=== PATIENT | male | born 1950 | race Caucasian/White ===

== ENCOUNTER 2022-03-30 08:18 | Inpatient (IN) | payer MEDICARE, SELFPAY ==
[2022-03-30] VITALS (9 sets, daily range): BP systolic 141–153; BP diastolic 72–87; PULSE 55–80; RESP 14–18; TEMP 36.2–36.8; O2SAT 96–98; BMI 26.4
--- NOTE | ~2022-03-30 | XR_ITS ---
EXAMINATION: XR chest 2V DATE: 03/30/2022 09:02 INDICATION: Chest pain. TECHNIQUE: Frontal and lateral views of the chest were obtained. COMPARISON: None. FINDINGS: The chest demonstrates clear lungs without pneumonia, pleural effusion, or pneumothorax. Th e heart size is normal. IMPRESSION: 1. No acute cardiopulmonary disease. Reviewed, dictated and finalized at location A.
--- NOTE | 2022-03-30 08:24 | ECG_ITS ---
Measurements Intervals [place] Rate: 60 P: -30 CT: 165 QRS: -13 QRSD: 116 T: -18 QT: 412 QTc: 414 Interpretive Statements SINUS RHYTHM WITH OCCASIONAL SUPRAVENTRICULAR PREMATURE COMPLEXES LOW QRS VOLTAGE IN PRECORDIAL LEADS [QRS DEFLECTION < 1.0 mV IN CHEST LEADS] RIGHT BUNDLE BRANCH BLOCK [120+ ms QRS DURATION, UPRIGHT V1, 40+ ms S IN I/aVL/V4/V5/V6] NO PREVIOUS ECG AVAILABLE FOR COMPARISON Electronically Signed On 03-31-2022 13:02:13 CDT by Kasie Zafar M.D.
--- NOTE | 2022-03-30 08:47 | ED.CHESTPAIN ---
HPI - Chest Pain General Chief Complaint: Chest Pain Stated Complaint: CHEST PAIN Time Seen by Provider: 03/30/22 08:23 Source: RN notes reviewed History of Present Illness HPI narrative: Patient presents emergency room from home for chest pain. Patient states pain began approximate 505 this morning and awoke him from sleep the pain is located over the lower midsternal chest in the epigastric region and described as a tightness that goes up into his neck. States nothing makes the pain better or worse he denies any fevers or chills shortness of breath nausea vomiting or any other symptoms states he has no history of of coronary disease Related Data Home Medications Medication Instructions Recorded Confirmed amlodipine 5 mg tablet mg 03/30/22 biotin 10,000 mcg capsule mcg PO 03/30/22 bisoprolol 5 tablet 03/30/22 mg-hydrochlorothiazide 6.25 mg tablet naproxen 500 mg tablet mg 03/30/22 omeprazole 10 mg capsule,delayed mg 03/30/22 release simvastatin 20 mg tablet mg 03/30/22 Allergies Allergy/AdvReac Type Severity Reaction Status Date / Time griseofulvin [From Grisactin] Allergy Hives Verified 03/30/22 09:36 morphine Allergy Hives Verified 03/30/22 08:20 Review of Systems Review of Systems: Gen: Denies fevers or chills Eyes: Denies eye pain or visual change ENT: Denies congestion Respiratory: Denies shortness of breath or cough CV: See HPI GI: Reports epigastric abdominal pain, denies nausea, emesis or diarrhea Musculoskeletal: Denies back pain or muscle pain Neuro: Denies numbness, tingling, weakness or focal weakness Skin: Denies rash Except as documented, all other systems reviewed and negative [facility] Past Medical History Medical History (Updated 03/30/22 @ 11:05 by Elmer Campuzano DO) Hypercholesterolemia Hypertension Social History Social History (Updated 03/30/22 @ 08:53 by Elmer Campuzano DO) Smoking status: Never smoker Exam Narrative: APPEARANCE: No acute distress, nontoxic, resting in bed EYES: EOMI HEENT: Normocephalic, atraumatic, OMM RESPIRATORY: No respiratory distress Clear to auscultation bilaterally with no rhonchi wheezing or rales. CARDIOVASCULAR: Regular rate and rhythm without murmurs rubs or gallops. ABDOMINAL: Soft, nondistended tender palpation epigastric region no tenderness right upper quadrant, left upper quadrant, right lower quadrant left lower quadrant no rebound or guarding MUSCULOSKELETAl: Moves all extremities. No clubbing, cyanosis or edema. NEURO: Awake and alert. Following commands, speech normal, no focal deficits SKIN:: Warm, dry. No rashes lesions or abrasions PSYCHIATRIC: Normal affect/mood, Course Course Emergency Course: Discussed with GAY Asif for Dr. Wharton agrees with consult Disacussed with Dr Strong agrees with admission Discussed with patient and family results of workup and diagnosis. Discussed need for admission. Patient and family understand and agree to current treatment plan Vital Signs Vital signs: Vital Signs Temperature 98.3 F 03/30/22 08:25 Pulse Rate 63 03/30/22 08:25 Respiratory Rate 14 03/30/22 08:25 Blood Pressure 151/87 H 03/30/22 08:25 Pulse Oximetry 98 03/30/22 08:25 Oxygen Delivery Room Air 03/30/22 08:25 Temperature 98.3 F 03/30/22 08:25 Pulse Rate 63 03/30/22 08:25 Respiratory Rate 14 03/30/22 08:25 Blood Pressure 151/87 H 03/30/22 08:25 Pulse Oximetry 98 03/30/22 08:25 Oxygen Delivery Room Air 03/30/22 08:25 MDM - Chest Pain Lab Data Result diagrams: 03/30/22 08:52 03/30/22 08:52 Labs: Lab Results 03/30/22 03/30/22 03/30/22 Range/Units 08:52 08:52 08:52 WBC 10.3 H (4.5-10.0) K/mm3 RBC 4.88 (4.6-6.20) M/mm3 Hgb 15.5 (14.0-18.0) g/dL Hct 45.5 (42.0-52.0) % MCV 93.2 (80-100) fl MCH 31.8 (26-34) pg MCHC 34.1 (32-36) g/dl RDW 12.2 (11.5-14.5) % Plt Count 234 (150-375)
[2022-03-30 08:59] LABS: Basophils Absolute Auto 0.1 K/mm3 (0.0-0.1); Basophils Percent Auto 0.6 % (0.2-1.2); Eosinophils Absolute Auto 0.1 K/mm3 (0-0.3); Eosinophils Percent Auto 0.6 % (0-4.4); Hematocrit 45.5 % (42.0-52.0); Hemoglobin 15.5 g/dL (14.0-18.0); Immature Granulocyte Absolute 0.04 K/mm3 (0.00-0.031); Immature Granulocyte Percent A 0.4 % (0-0.5); Lymphocytes Absolute Auto 1.42 K/mm3 (0.9-3.2); Lymphocytes Percent Auto 13.8 % (18.3-44.2); Mean Corpuscular HGB Conc 34.1 g/dl (32-36); Mean Corpuscular Hemoglobin 31.8 pg (26-34); Mean Corpuscular Volume 93.2 fl (80-100); Mean Platelet Volume 9.7 fl (7.4-10.4); Monocytes Absolute Auto 0.5 K/mm3 (0.1-0.6); Monocytes Percent Auto 4.7 % (2.6-8.5); Neutrophils Absolute Auto 8.3 K/mm3 (1.3-6.7); Neutrophils Percent Auto 79.9 % (45.5-73.1); Platelet Count Result 234 k/mm3 (150-375); Red Blood Count 4.88 M/mm3 (4.6-6.20); Red Cell Distribution Width 12.2 % (11.5-14.5); White Blood Count 10.3 K/mm3 (4.5-10.0)
[2022-03-30 09:09] LABS: Alanine Aminotransferase 20 U/L (6-50); Albumin Level 4.4 g/dL (3.5-5.1); Alkaline Phosphatase 51 U/L (38-126); Anion Gap 13 mmol/L (8-16); Aspartate Amino Transferase 21 U/L (17-59); Bilirubin,Total 0.5 mg/dL (0.2-1.3); Blood Urea Nitrogen 13 mg/dL (9-20); Calcium 8.7 mg/dL (8.4-10.2); Carbon Dioxide 24 mmol/L (22-30); Chloride 102 mmol/L (98-107); Estimated CRCL calculation 85 ml/min; Estimated Glomerular Filt Rate > 60; Glucose 218 mg/dL (65-110); Lipase 63 U/L (23-300); Potassium 3.5 mmol/L (3.4-5.0); Sodium 139 mmol/L (137-145)
[2022-03-30 09:12] LABS: Prothrombin Time 12.4 Seconds (11.1-14.7)
[2022-03-30 09:13] LABS: Partial Thromboplastin Time 27.6 SECONDS (22.3-36.8)
[2022-03-30 09:20] LABS: Troponin I 0.021 ng/mL (0.000-0.034)
[2022-03-30] MEDS: ASPIRIN 81 MG CHEWABLE TABLET 324 MG PO (09:37)
--- NOTE | 2022-03-30 12:05 | PC.NURSE ---
This patient, Betito Wells, was admitted to IMU Room 209-01 at 1043. Patient/family oriented to hospital policies and general routines including ID bracelet, bed and alarms, visiting hours, pain management, procedures, bathroom and other care routines, personal items, smoking policy, room service/diet, and visiting hours. Information on how to activate the Rapid Response Team has been discussed. Patient/Family are encouraged to report perceived risks to care and to ask questions if they do not understand what they are told or what they should do.
[2022-03-30 12:13] LABS: Troponin I 0.271 ng/mL (0.000-0.034)
--- NOTE | 2022-03-30 15:30 | PM.IMHP ---
H&P: HPI History of Present Illness Date/Time: 03/30/22 13:30 Chief Complaint: Chest pain. Narrative: This is a very pleasant 71-year-old male with hypertension, hyperlipidemia, and GERD who presented to the ED via private vehicle for evaluation of chest pain. He is from [place], [place] and he and his are here visiting her grandmother. They drove to the area over a period of 2 days and arrived last evening. He had a chili dog and a beer after they got to the hotel and at about 05:00 he was wakened from sleep with discomfort in the mid chest region. Initially he thought he probably had indigestion from what he had eaten the night before though he quickly realized that his symptoms were different. He describes a pretty constant, aching discomfort in the mid chest region radiating up into the neck. After couple of hours he felt it would be best to come in for evaluation. Initial troponin level was normal at 0.020 but his 3 and 6 hour troponins have continued to increase and his most recent troponin was 4.700. The patient has been loaded with clopidogrel and he has received doses of aspirin, metoprolol, losartan, and atorvastatin. Plans are for coronary angiogram tomorrow per Dr. Wharton. The patient has no known history of coronary artery disease. He had a cardiac catheterization done about 20 years ago which showed perhaps a very small area of blockage but nothing significant and he was started on atorvastatin. He has not had any episodes of chest pain prior to today. He denies associated nausea, vomiting, sweats, and shortness of breath Review of Systems Review of Systems: Twelve systems were reviewed. No recent cold or flu symptoms. No syncope or near syncope. No lower extremity edema. He has not had exertional chest pain. He denies associated shortness of breath, nausea, vomiting, and sweats. No history of venous thromboembolism. Except as documented, all other systems were reviewed and are negative. [facility] Past Medical History Medical History (Updated 03/30/22 @ 13:28 by Moira Madsen PA-C) Arthritis Gastroesophageal reflux disease Hyperlipidemia Hypertension Surgical History Surgical History (Updated 03/30/22 @ 21:42 by Moira Madsen PA-C) History of cardiac catheterization History of left knee surgery History of tonsillectomy Family History Family History Sibling A-fib Breast cancer Father Diabetes mellitus Coronary artery disease involving coronary bypass graft Mother TIA (transient ischemic attack) Cerebrovascular accident Social History Social History (Updated 03/30/22 @ 21:43 by Moira Madsen PA-C) Social History: Surrogate medical decision maker: Abner Wells, spouse. Code status: Full code. Smoking status: Former smoker Tobacco type: cigarettes Alcohol intake: current Drinks per week: 1 Substance use: never Additional living arrangements comments: The patient lives with his in [place], [place]. 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 Spiritual care concerns: No Meds Home Medications and Allergies Home Medications Medication Instructions Recorded Confirmed Type Claritin 1 tablet PO QPM 03/30/22 03/30/22 History Daily Multivitamin 1 cap PO DAILY 03/30/22 03/30/22 History amlodipine 5 mg tablet 5 mg PO DAILY 03/30/22 03/30/22 History biotin 10,000 mcg capsule 10,000 mcg PO DAILY 03/30/22 03/30/22 History bisoprolol 5 5 - 6.25 tablet PO BID 03/30/22 03/30/22 History mg-hydrochlorothiazide 6.25 mg tablet naproxen 500 mg tablet 500 mg PO DAILY PRN Pain 03/30/22 03/30/22 History omeprazole 10 mg capsule,delayed 20 mg PO QPM 03/30/22 03/30/22 History release simvastatin 20 mg tablet 20 mg PO DAILY 03/30/22 03/30/22 History vitamin E 400 unit tablet 400 unit PO DAILY 03/30/22 03/30/22 History Allergies Allergy/AdvReac Type Severity Reaction Status Da
--- NOTE | 2022-03-30 15:49 | PM.CNCAR ---
Assessment and Plan Assessment and plan (1) Non-ST elevation myocardial infarction (NSTEMI): Code(s): I21.4 - Non-ST elevation (NSTEMI) myocardial infarction Status: Acute Plan This is a 71-year-old man with hypertension and dyslipidemia who enters the hospital with an episode of chest pain this morning obvious evidence of non ST elevation TN with signet significant troponin rise. I will order aspirin, load him with clopidogrel and, beta-adriane, statin and ARB. Will arrange for coronary angiography for tomorrow morning. We will give him 1 dose of Lovenox this evening Alberto Wharton MD [facility] History of Present Illness History of Present Illness Consult date/time: 03/30/22 15:49 Consult reason: chest pain Reason For Visit: Chest Pain Narrative: This is a 71-year-old man who came to our hospital this morning because of chest pain. He is visiting this area from [place] to see his elderly [id number] and began to experience chest discomfort this morning and went to an urgent care center who sent him immediately to this hospital's emergency room for evaluation and management. After being seen in the emergency department he has been admitted to IMU. He has the diagnosis of non ST segment elevation TN. He says he has no prior history of coronary artery disease but he has had esophageal reflux for many years. He says that his physicians in [place] on a number of occasions have been concerned about heart disease and in fact quite a few years ago put appear a coronary angiogram and with favorable findings. He states that he is not experiencing any trouble exerting himself in the way of shortness of breath or chest pain the symptoms today however were similar to his previous reflux symptoms in terms of central burning chest discomfort but they persisted longer and were a bit more severe. There was no associated shortness of breath or or diaphoresis. His troponin levels on arrival were normal but have risen up to over 4. He is comfortable at this time. He has been treated with aspirin but nothing else for this acute coronary event. Review of Systems Constitutional: Constitutional: Reports no additional constitutional complaints Eyes: Eyes: Reports no additional eye complaints ENT: Reports system reviewed and no additional complaints, except as documented Cardiovascular: Cardiovascular: Reports as per HPI and Reports chest pain Respiratory: Respiratory: Reports no additional respiratory complaints Gastrointestinal: Gastrointestinal: Reports as per HPI and Reports heartburn Musculoskeletal: Musculoskeletal: Reports no additional musculoskeletal complaints Neurologic: Reports system reviewed and no additional complaints, except as documented Endocrine: Endocrine: Reports no additional endocrine complaints Hematologic/Lymphatic: Hematologic/Lymphatic: Reports no additional hematologic/lymphatic complaints Allergic/Immunologic: Allergic/Immunologic: Reports no additional allergic/immunologic complaints [facility] Past Medical History Medical History (Updated 03/30/22 @ 13:28 by Moira Madsen PA-C) Arthritis Gastroesophageal reflux disease Hyperlipidemia Hypertension Family History Family History (Updated 03/30/22 @ 11:37 by Dafne Dodge RN) Sibling A-fib Breast cancer Father Diabetes mellitus Coronary artery disease involving coronary bypass graft Mother TIA (transient ischemic attack) Cerebrovascular accident Social History Social History (Updated 03/30/22 @ 13:27 by Moira Madsen PA-C) Social History: Surrogate medical decision maker: Code status: Full code. Smoking status: Former smoker Tobacco type: cigarettes Alcohol intake: current Drinks per week: 1 Substance use: never Spiritual care concerns: No Meds Home Medications and Allergies Home Medications Medication Instructions Recorded Confirmed Type Claritin 1 tablet PO QPM 03/30/22 03/30/22
[2022-03-30] MEDS: LOSARTAN POTASSIUM 25 MG TABLET PO (18:11)
[2022-03-30] MEDS: ATORVASTATIN 40 MG TABLET 80 MG PO (18:11)
[2022-03-30] MEDS: CLOPIDOGREL BISULFATE 300 MG TABLET 600 MG PO (18:11)
[2022-03-30] MEDS: METOPROLOL SUCCINATE EXT REL 50 MG TABCR PO (18:11)
[2022-03-30] MEDS: ENOXAPARIN 80 MG/0.8 ML SYRINGE SUB-Q (18:12)
[2022-03-30] MEDS: PANTOPRAZOLE 40 MG TABLET PO (22:27)
[2022-03-31] VITALS (28 sets, daily range): BP systolic 113–146; BP diastolic 55–78; PULSE 50–69; RESP 8–18; TEMP 36.3–36.6; O2SAT 92–98
--- NOTE | 2022-03-31 | ECHO_ITS ---
Patient Info Name: Betito Wells Age: 71 years : 1950 Gender: Male Ht: 70 in Wt: 174 lbs BSA: 1.98 m2 HR: 60 bpm BP: 122 / 66 mmHg Heart Rhythm: Sinus Rhythm Technical Quality: Fair Exam Date: 03/31/2022 1:45 PM Exam Location: [facility] Patient Status: Inpatient Admit Date: 03/31/2022 Staff Ordering Physician: Harrison Callahan MD (dasia/bora) Machine Worker: Donna Wells RDCS Attending Provider: Aleksandr Lantigua MD Referring Physician: London FARLEY; Exam Type: CA echo doppler color flow Study Info Indications - NSTEMI Complete two-dimensional, color flow and Doppler transthoracic echocardiogram is performed with contrast to opacify the left ventricle and to improve the deliniation of the left ventricle endocardial borders. Contrast/Agitated Saline Contrast/Ag. Saline: Definity Amount: 3.00 ml Administered By: Donna Wells RDCS Existing IV Access: Yes IV Access Condition: patent with no signs of infiltration Summary 1. Left ventricular systolic function is normal, estimated at >70%. 2. Right ventricular systolic function is normal. 3. No significant valvular disease. Left Ventricle Left ventricular chamber dimension is normal. Left ventricular systolic function is normal, estimated at >70%. There is no increased left ventricular wall thickness. The left ventricular diastolic function is normal. Right Ventricle Right ventricular chamber dimension is normal. Right ventricular systolic function is normal. Left Atria Left atrial chamber dimension is normal. Right Atria Right atrial chamber dimension is normal. Aortic Valve The aortic valve is not well visualized. There is no aortic valve sclerosis. There is no aortic valve stenosis. There is no aortic valve regurgitation. There is mild aortic valve calcification. Pulmonic Valve The pulmonic valve is not well visualized. Mitral Valve The mitral valve has normal leaflets. There is no mitral valve stenosis. There is no mitral valve regurgitation. Tricuspid Valve The tricuspid valve leaflets are not well visualized. There is trace tricuspid valve regurgitation. Pericardium/Pleural There is no pericardial effusion. Inferior Vena Cava Normal inferior vena cava with <50% collapse upon inspiration. Aorta The aortic root size at the sinus of Valsalva is normal. Left Ventricular Outflow Tract Name Value Normal LVOT 2D LVOT Diameter 2.0 cm LVOT Doppler LVOT Peak Gradient 3 mmHg LVOT Mean Gradient 1 mmHg LVOT VTI 21 cm LVOT VTI/AV VTI Ratio 0.4 LVOT Stroke Volume 64 ml LVOT CO 3.5 l/min LVOT CI 1.8 l/min/m2 Pulmonic Valve Name Value Normal
--- NOTE | 2022-03-31 03:45 | PC.NURSE ---
Spoke with Dr. Church regarding current 4/10 chest pain. Patient describes it as a chest discomfort/ache at a 4/10 pain. Give 0.4mg SL Nitro. If patient still has discomfort, may do nitro transdermal. Give patient 4L NC supplemental oxygen.
[2022-03-31] MEDS: NITROGLYCERIN SL 0.4 MG TABLET SUBLINGUAL (03:57)
--- NOTE | 2022-03-31 04:06 | PC.NURSE ---
Chest pain down to 2/10, start Nitropaste [address] Church.
[2022-03-31] MEDS: NITROGLYCERIN OINTMENT 1 INCH DOSE TRANSDERM (04:10)
[2022-03-31 04:59] LABS: Basophils Absolute Auto 0.1 K/mm3 (0.0-0.1); Basophils Percent Auto 0.8 % (0.2-1.2); Eosinophils Absolute Auto 0.2 K/mm3 (0-0.3); Eosinophils Percent Auto 2.3 % (0-4.4); Hematocrit 42.6 % (42.0-52.0); Hemoglobin 14.2 g/dL (14.0-18.0); Immature Granulocyte Absolute 0.02 K/mm3 (0.00-0.031); Immature Granulocyte Percent A 0.2 % (0-0.5); Lymphocytes Absolute Auto 2.35 K/mm3 (0.9-3.2); Lymphocytes Percent Auto 28.1 % (18.3-44.2); Mean Corpuscular HGB Conc 33.3 g/dl (32-36); Mean Corpuscular Hemoglobin 31.3 pg (26-34); Mean Platelet Volume 9.8 fl (7.4-10.4); Monocytes Absolute Auto 0.8 K/mm3 (0.1-0.6); Neutrophils Percent Auto 59.6 % (45.5-73.1); Platelet Count Result 245 k/mm3 (150-375); Red Blood Count 4.53 M/mm3 (4.6-6.20); Red Cell Distribution Width 12.4 % (11.5-14.5); White Blood Count 8.4 K/mm3 (4.5-10.0)
[2022-03-31 05:23] LABS: Alanine Aminotransferase 20 U/L (6-50); Albumin Level 3.9 g/dL (3.5-5.1); Alkaline Phosphatase 42 U/L (38-126); Anion Gap 12 mmol/L (8-16); Aspartate Amino Transferase 59 U/L (17-59); Bilirubin,Total 0.5 mg/dL (0.2-1.3); Blood Urea Nitrogen 12 mg/dL (9-20); Calcium 8.2 mg/dL (8.4-10.2); Carbon Dioxide 27 mmol/L (22-30); Chloride 103 mmol/L (98-107); Estimated CRCL calculation 85 ml/min; Estimated Glomerular Filt Rate > 60; Glucose 130 mg/dL (65-110); Potassium 3.5 mmol/L (3.4-5.0); Sodium 142 mmol/L (137-145)
[2022-03-31] MEDS: METOPROLOL SUCCINATE EXT REL 50 MG TABCR PO (08:35)
[2022-03-31] MEDS: ATORVASTATIN 40 MG TABLET 80 MG PO (08:35)
[2022-03-31] MEDS: LOSARTAN POTASSIUM 25 MG TABLET PO (08:35)
[2022-03-31 08:47] LABS: Glucose Point of Care 129 mg/dl (65-105)
--- NOTE | 2022-03-31 10:33 | SUR.PREOP ---
patient transferred from [facility] to [facility] room 7 on monitor in preparation for cardiac cath.
--- NOTE | 2022-03-31 11:16 | PM.PNCARD ---
Progress Note: A&P Assessment and Plan (1) Non-ST elevation myocardial infarction (NSTEMI): Code(s): I21.4 - Non-ST elevation (NSTEMI) myocardial infarction Status: Acute (2) Gastroesophageal reflux disease: Code(s): K21.9 - Gastro-esophageal reflux disease without esophagitis Status: Acute (3) Hyperlipidemia: Code(s): E78.5 - Hyperlipidemia, unspecified Status: Acute (4) Chest pain: Code(s): R07.9 - Chest pain, unspecified Status: Acute (5) Hypertension: Code(s): I10 - Essential (primary) hypertension Status: Acute Plan Cardiac cath today. Further recommendations pending results of cath. Subjective Date/time seen: 03/31/22 11:16 Interval history: Planned for cardiac cath today. Review of Systems Review of Systems: All systems reviewed & are unremarkable except as noted in HPI and below (subjective) Exam Const: General: comfortable and no acute distress Neck: Neck: no JVD Resp: Effort & Inspection: normal respiratory effort Auscultation: clear to auscultation bilaterally Cardio: Rate: regular rate Rhythm: regular rhythm Heart sounds: no murmurs GI: GI Palp: Yes Soft to palpation and No Tenderness to palpation present (GI) Skin: General skin exam: normal color Neuro: Speech: normal speech Extrem: General: no edema Psych: Mental Status: mental status grossly normal Objective Data Vital Signs Vital Signs: Vital Signs - 24 hr 03/30/22 12:00 03/30/22 16:00 03/30/22 18:11 Temperature 36.2 C L 36.7 C Pulse Rate 58 L 61 70 Respiratory Rate 18 18 Blood Pressure 148/73 H 149/72 H Pulse Oximetry 96 97 Oxygen Delivery 03/30/22 12:00 03/30/22 14:00 03/30/22 16:00 Temperature Pulse Rate 56 L 55 L 63 Respiratory Rate Blood Pressure Pulse Oximetry Oxygen Delivery 03/30/22 18:00 03/30/22 16:00 03/30/22 20:00 Temperature Pulse Rate 62 71 Respiratory Rate 17 Blood Pressure Pulse Oximetry Oxygen Delivery Room Air Room Air 03/30/22 20:00 03/30/22 20:00 03/30/22 22:00 Temperature 36.7 C Pulse Rate 80 77 71 Respiratory Rate 18 Blood Pressure 141/74 H Pulse Oximetry 97 Oxygen Delivery 03/31/22 00:00 03/31/22 00:00 03/31/22 00:00 Temperature 36.4 C Pulse Rate 62 64 60 Respiratory Rate 16 Blood Pressure 133/70 Pulse Oximetry 97 Oxygen Delivery Room Air 03/31/22 02:00 03/31/22 03:04 03/31/22 04:00 Temperature 36.6 C Pulse Rate 62 62 58 L Respiratory Rate 16 Blood Pressure 146/71 H Pulse Oximetry 98 Oxygen Delivery Room Air 03/31/22 04:00 03/31/22 06:00 03/31/22 07:50 Temperature 36.3 C L Pulse Rate 65 61 60 Respiratory Rate 12 Blood Pressure 122/66 Pulse Oximetry 98 Oxygen Delivery 03/31/22 08:00 03/31/22 08:00 03/31/22 10:00 Temperature Pulse Rate 63 60 Respiratory Rate Blood Pressure Pulse Oximetry Oxygen Delivery Room Air Intake/Output Intake/Output: Intake & Output 03/28/22 03/29/22 03/30/22 03/31/22 23:59 23:59 23:59 23:59 Intake Total 840 Output Total 400 Balance 840 -400 Meds/Results Medications: Active Medications Generic Name Dose Route Start Last Admin Trade Name Freq PRN Reason Stop Dose Admin Acetaminophen 650 mg 03/31/22 04:11 Acetaminophen 325 Mg Tablet PO Q4H PRN Headache Aspirin 81 mg 03/31/22 09:00 Aspirin 81 Mg [facility] Atorvastatin Calcium 80 mg 03/30/22 15:50 03/31/22 08:35 Atorvastatin 40 Mg Tablet PO 80 mg DAILY [facility] Administration Clopidogrel Bisulfate 75 mg 03/31/22 09:00 Clopidogrel Bisulfate 75 Mg Tablet [facility] Losartan Potassium 25 mg 03/30/22 15:50 03/31/22 08:35 Losartan Potassium 25 Mg Tablet PO 25 mg DAILY [facility] Administration Metoprolol Succinate 50 mg 03/30/22 15:50 03/31/22 08:35 Metoprolol Succinate Ext Rel 50 Mg Tabcr PO 50 mg QA
--- NOTE | 2022-03-31 11:18 | WPDMODSED ---
Moderate Sedation Note-Pt Data Patient Data Diagnosis: NSTEMI Present Complaint: Chest pain Procedure to be performed/Plan: Cardiac Cath Allergies Allergy/AdvReac Type Severity Reaction Status Date / Time griseofulvin [From Grisactin] Allergy Hives Verified 03/30/22 09:36 morphine Allergy Hives Verified 03/30/22 08:20 Home Medications Medication Instructions Recorded Confirmed Type Claritin 1 tablet PO QPM 03/30/22 03/30/22 History Daily Multivitamin 1 cap PO DAILY 03/30/22 03/30/22 History amlodipine 5 mg tablet 5 mg PO DAILY 03/30/22 03/30/22 History biotin 10,000 mcg capsule 10,000 mcg PO DAILY 03/30/22 03/30/22 History bisoprolol 5 5 - 6.25 tablet PO BID 03/30/22 03/30/22 History mg-hydrochlorothiazide 6.25 mg tablet naproxen 500 mg tablet 500 mg PO DAILY PRN Pain 03/30/22 03/30/22 History omeprazole 10 mg capsule,delayed 20 mg PO QPM 03/30/22 03/30/22 History release simvastatin 20 mg tablet 20 mg PO DAILY 03/30/22 03/30/22 History vitamin E 400 unit tablet 400 unit PO DAILY 03/30/22 03/30/22 History Current Medications: Active Medications Acetaminophen (Acetaminophen 325 Mg Tablet) 650 mg PO Q4H PRN PRN Reason: Headache Aspirin (Aspirin 81 Mg Enteric Tablet) 81 mg PO QAM [facility] Atorvastatin Calcium (Atorvastatin 40 Mg Tablet) 80 mg PO DAILY [facility] Last Admin: 03/31/22 08:35 Dose: 80 mg Clopidogrel Bisulfate (Clopidogrel Bisulfate 75 Mg Tablet) 75 mg PO QAM [facility] Losartan Potassium (Losartan Potassium 25 Mg Tablet) 25 mg PO DAILY [facility] Last Admin: 03/31/22 08:35 Dose: 25 mg Metoprolol Succinate (Metoprolol Succinate Ext Rel 50 Mg Tabcr) 50 mg PO QAM [facility] Last Admin: 03/31/22 08:35 Dose: 50 mg Nitroglycerin (Nitroglycerin Sl 0.4 Mg Tablet) 0.4 mg SUBLINGUAL Q5MIN PRN PRN Reason: Chest Pain Last Admin: 03/31/22 03:57 Dose: 0.4 mg Pantoprazole Sodium (Pantoprazole 40 Mg Tablet) 40 mg PO QPM [facility] Last Admin: 03/30/22 22:27 Dose: 40 mg Perflutren Lipid Microsphere (Perflutren Lipid Microspheres 1.5 Ml Vial Diluted To 10 Ml Total Volume) 0 ml IV PUSH ONCE PRN; Protocol PRN Reason: adequate visualization Stop: 04/02/22 11:17 Sedation/Anesthesia: No previous sedation/anesthesia problems (including family history). [facility] Past Medical History Medical History Arthritis Gastroesophageal reflux disease Hyperlipidemia Hypertension Surgical History Surgical History History of cardiac catheterization History of left knee surgery History of tonsillectomy Family History Family History Sibling A-fib Breast cancer Father Diabetes mellitus Coronary artery disease involving coronary bypass graft Mother TIA (transient ischemic attack) Cerebrovascular accident Social History Social History Social History: Surrogate medical decision maker: Abner Wells, spouse. Code status: Full code. Smoking status: Former smoker Tobacco type: cigarettes Alcohol intake: current Drinks per week: 1 Substance use: never Additional living arrangements comments: The patient lives with his in [place], [place]. 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 Spiritual care concerns: No Mod Sed Physical Exam Physical Exam Pre Procedural Exam: Normal: Appearance, Lungs, Heart Rate, Heart Rhythm, Neuro Exam, Abdomen, Extremities and Skin Hours since solid foods: 10 Hours since liquid intake: 10 Mallampati Classification: class III Internal Medicine - PN: Obj Da Vital Signs Vital Signs: Vital Signs - 24 hr 03/30/22 12:00 03/30/22 16:00 03/30/22 18:11 Temperature 36.2 C L 36.7 C Pulse Rate 58 L 61 70 Respiratory Rate 18 18 Blood Pressure 148/73 H 149/72 H Pulse Oximetry 96 97 Oxygen Delivery 03/30/22 12:00 03/30/22
--- NOTE | 2022-03-31 12:42 | WPDCARDPROC ---
Cardiac Cath Procedure Note Date of procedure:: 03/31/22 Performing physician:: CATHETERIZATION LABORATORY REPORT Procedure Date: 03/31/2022 Dynamotor Repairer: Harrison Callahan M.D., [facility]? Referring Physician: Dr. Wharton Anesthesia: Versed and Fentanyl were ordered and given in my presence at 11:24, procedure ended at 12:34. Supervision of nurse monitored moderate sedation with Versed and Fentanyl was provided for 70 minutes. Total of Versed 4mg, Fentanyl 100mcg, and Dilaudid 0.5mg were administered by the laborer golf course RN. Pre-op Diagnosis: NSTEMI / ACS Post-op Diagnosis: Significant Diagonal-1 stenosis s/p successful PCI with MARJORIE x 1 Non-obstructive coronary artery disease of the LAD, LCX/OM, and RCA Procedure(s): 1. Moderate sedation 2. Ultrasound-guided access of the right radial artery 3. Coronary angiography 4. PCI of the Diagonal-1 with MARJORIE x 1 Access Site: Right radial artery Brief History and Clinical Indications: Patient is a 71-year-old male with a history of hypertension and hyperlipidemia who presented with chest pain, found to have an NSTEMI. Patient referred for cardiac cath for NSTEMI. All risks, benefits and alternatives to left heart catheterization with or without percutaneous coronary intervention was discussed at length with the patient. Risk of complications including but not limited to bleeding, infection, arrhythmia, stroke, worsening kidney function, blood loss, groin hematoma, limb loss, emergency coronary artery bypass grafting, and even were discussed with the patient and all questions were answered. The patient understood and wished to proceed. Time out called, patient name, date of , medical record number, allergies, procedure performed, identify Dynamotor Repairer, patient and staff member concurred with accurate data, procedure carried on. Findings: LEFT HEART CATHETERIZATION FINDINGS: 1. Left main: The left main coronary artery is widely patent without any significant obstructive disease. The left main is short. 2. Left anterior descending: The LAD has mild diffuse disease without any significant obstructive angiographic disease. The first diagonal branch has proximal mild diffuse disease. The mid portion of the Diagonal-1 vessel has a focal 80-90% stenosis. 3. Left circumflex: The left circumflex artery and the main marginal branches have mild diffuse disease without any significant obstructive angiographic disease. 4. Right coronary artery: The RCA has mild diffuse disease without any significant obstructive angiographic disease. The RCA is the dominant vessel. Description of Procedure: Informed consent signed and placed in the chart. Patient transferred to laborer golf course room. Prepped and draped in usual sterile fashion. 2% lidocaine injected subcutaneously in right wrist area. 22-gauge venipuncture catheter used to access the right radial artery with the Seldinger technique. 6-FR slender sheath placed in right radial artery. Nitroglycerine and Cardene was given intraarterial through the sheath. Versacore wire advanced under fluoroscopy 5F Tig 4 diagnostic catheter engaged Left Main Coronary Artery. 5F Tig 4 diagnostic catheter engaged Right Coronary Artery Multiple orthogonal angiogram obtained and reviewed Heparin was used for anticoagulation (ACT maintained above 250) Patient loaded with heparin at 70 units/kg. 6F JL4 guide catheter was used to intubate the LM. 0.014 [place] coronary wire was passed in to the distal Diagonal vessel. The lesion was pre-dilated with a 2.5mm x 20mm balloon inflated to high SANDY A 3.0mm x 22mm Orsiro MARJORIE was successfully deployed into Diagonal (inflated to 12ATM). Intracoronary NTG was administered Post-stent deployment, it appeared that there was a lesion proximal to the stent. This improved with IC NTG. As the stent may have been slightly oversized, this likely gave the appearance of proximal disease. To avoid stenting into the ostium / bifurcation of the
[2022-03-31 12:48] LABS: Activated Clotting Time 184 SEC (74-137)
[2022-03-31 12:48] LABS: Activated Clotting Time 324 SEC (74-137)
--- NOTE | 2022-03-31 13:08 | SUR.PHASEII ---
patient in recovery room [id number] with family at bedside. education given on right wrist restrictions/arm band and armboard. call light with in reach
[2022-03-31] MEDS: PERFLUTREN LIPID MICROSPHERES 1.5 ML VIAL DILUTED TO 10 ML TOTAL VOLUME IV PUSH (14:00)
--- NOTE | 2022-03-31 14:12 | ECG_ITS ---
Measurements Intervals Sharon Rate: 54 P: 5 CA: 190 QRS: 3 QRSD: 116 T: 36 QT: 418 QTc: 397 Interpretive Statements SINUS BRADYCARDIA LOW QRS VOLTAGE IN PRECORDIAL LEADS [QRS DEFLECTION < 1.0 mV IN CHEST LEADS] RIGHT BUNDLE BRANCH BLOCK [120+ ms QRS DURATION, UPRIGHT V1, 40+ ms S IN I/aVL/V4/V5/V6] COMPARED TO ECG 03/30/2022 08:28:04 SINUS BRADYCARDIA NOW PRESENT Electronically Signed On 04-01-2022 14:36:08 CDT by Harrison Callahan M.D.
[2022-03-31] MEDS: SODIUM CHLORIDE 0.9% IV 1,000 ML 125 ML IV CONT (15:00)
--- NOTE | 2022-03-31 15:12 | PM.IMPN ---
Progress Note: A&P Assessment and Plan (1) Non-ST elevation myocardial infarction (NSTEMI): Code(s): I21.4 - Non-ST elevation (NSTEMI) myocardial infarction Status: Acute (2) Hypertension: Code(s): I10 - Essential (primary) hypertension Status: Acute (3) Hyperlipidemia: Code(s): E78.5 - Hyperlipidemia, unspecified Status: Acute (4) Gastroesophageal reflux disease: Code(s): K21.9 - Gastro-esophageal reflux disease without esophagitis Status: Acute Plan # non ST-elevation [place]: On aspirin and Plavix. Underwent cardiac catheterization 03/31/2022: Significant Diagonal-1 stenosis s/p successful PCI with MARJORIE x 1 Non-obstructive coronary artery disease of the LAD, LCX/OM, and RCA DA PT for 1 year followed by a ASA indefinitely TTE planned high-dose statin # hypertension #Hyperlipidemia # DVT prophylaxis received Lovenox # disposition: Patient Is from [facility]. Follow-up with cardiology upon discharge Subjective Date/time seen: 03/31/22 15:12 Interval history: seen earlier today. Had an episode of chest pain last night resolved with nitro. His going for a heart catheterization today. Discussed with tiger machine operator Review of Systems Review of Systems: All systems reviewed & are unremarkable except as noted in HPI and below Exam Narrative: General: Well-developed male sitting up in bed no distress. HEENT: Wearing glasses. PERRL, EOMI. Sclera anicteric. Oral mucosa moist. Oropharynx clear. Neck: Supple. No JVD or carotid bruits. Respiratory: Lungs are clear to auscultation bilaterally. Cardiovascular: Regular rate and rhythm with S1-S2. Gastrointestinal: Abdomen is soft, nontender, and nondistended with positive bowel sounds. Skin: Warm and dry. No rash or lesions on limited exam. Extremities: No cyanosis, clubbing, or edema. Radial and pedal pulses intact. Neurological: Alert. Cranial nerves 2-12 are grossly intact. No gross focal deficits to casual conversation. Psychiatric: Pleasant and cooperative with normal mood and affect. Judgment and insight intact. Objective Data Vital Signs Vital Signs: Vital Signs - 24 hr 03/30/22 16:00 03/30/22 18:11 03/30/22 16:00 Temperature 98.1 F Pulse Rate 61 70 63 Respiratory Rate 18 Blood Pressure 149/72 H Pulse Oximetry 97 Oxygen Delivery 03/30/22 18:00 03/30/22 16:00 03/30/22 20:00 Temperature Pulse Rate 62 71 Respiratory Rate 17 Blood Pressure Pulse Oximetry Oxygen Delivery Room Air Room Air 03/30/22 20:00 03/30/22 20:00 03/30/22 22:00 Temperature 98.1 F Pulse Rate 80 77 71 Respiratory Rate 18 Blood Pressure 141/74 H Pulse Oximetry 97 Oxygen Delivery 03/31/22 00:00 03/31/22 00:00 03/31/22 00:00 Temperature 97.6 F Pulse Rate 62 64 60 Respiratory Rate 16 Blood Pressure 133/70 Pulse Oximetry 97 Oxygen Delivery Room Air 03/31/22 02:00 03/31/22 03:04 03/31/22 04:00 Temperature 97.9 F Pulse Rate 62 62 58 L Respiratory Rate 16 Blood Pressure 146/71 H Pulse Oximetry 98 Oxygen Delivery Room Air 03/31/22 04:00 03/31/22 06:00 03/31/22 07:50 Temperature 97.4 F L Pulse Rate 65 61 60 Respiratory Rate 12 Blood Pressure 122/66 Pulse Oximetry 98 Oxygen Delivery 03/31/22 08:00 03/31/22 08:00 03/31/22 10:00 Temperature Pulse Rate 63 60 Respiratory Rate Blood Pressure Pulse Oximetry Oxygen Delivery Room Air 03/31/22 13:04 03/31/22 13:00 03/31/22 13:15 Temperature Pulse Rate 57 L 54 L 51 L Respiratory Rate 16 16 8 L Blood Pressure 141/69 H 129/67 136/65 Pulse Oximetry 93 93 94 Oxygen Delivery Room Air Room Air Room Air 03/31/22 14:00 03/31/22 13:30 03/31/22 13:45 Temperature Pulse Rate 55 L 55 L 50 L Respiratory Rate 15 10 L 12 Blood Pressure 135/69 127/71 130/65 Pulse Oximetry 92 94 94 Oxygen Delivery Room Air Room Air Room Air 03/31/22 14:15 03/31/22 14:32 10
[2022-03-31] MEDS: PANTOPRAZOLE 40 MG TABLET PO (16:10)
[2022-04-01] VITALS (8 sets, daily range): BP systolic 128–131; BP diastolic 62–68; PULSE 54–71; RESP 16–18; TEMP 36.1–36.6; O2SAT 95–97
[2022-04-01 04:46] LABS: Basophils Absolute Auto 0.1 K/mm3 (0.0-0.1); Basophils Percent Auto 0.7 % (0.2-1.2); Eosinophils Absolute Auto 0.3 K/mm3 (0-0.3); Eosinophils Percent Auto 2.8 % (0-4.4); Hematocrit 39.2 % (42.0-52.0); Hemoglobin 13.4 g/dL (14.0-18.0); Immature Granulocyte Absolute 0.02 K/mm3 (0.00-0.031); Immature Granulocyte Percent A 0.2 % (0-0.5); Lymphocytes Absolute Auto 2.62 K/mm3 (0.9-3.2); Mean Corpuscular HGB Conc 34.2 g/dl (32-36); Mean Corpuscular Hemoglobin 31.3 pg (26-34); Mean Corpuscular Volume 91.6 fl (80-100); Mean Platelet Volume 9.6 fl (7.4-10.4); Monocytes Absolute Auto 0.7 K/mm3 (0.1-0.6); Monocytes Percent Auto 7.9 % (2.6-8.5); Neutrophils Absolute Auto 5.4 K/mm3 (1.3-6.7); Neutrophils Percent Auto 59.4 % (45.5-73.1); Platelet Count Result 214 k/mm3 (150-375); Red Blood Count 4.28 M/mm3 (4.6-6.20); Red Cell Distribution Width 12.4 % (11.5-14.5)
[2022-04-01 04:54] LABS: Alanine Aminotransferase 17 U/L (6-50); Albumin Level 3.6 g/dL (3.5-5.1); Alkaline Phosphatase 40 U/L (38-126); Anion Gap 9 mmol/L (8-16); Aspartate Amino Transferase 37 U/L (17-59); Bilirubin,Total 0.5 mg/dL (0.2-1.3); Blood Urea Nitrogen 8 mg/dL (9-20); Calcium 7.9 mg/dL (8.4-10.2); Carbon Dioxide 27 mmol/L (22-30); Chloride 104 mmol/L (98-107); Estimated CRCL calculation 98 ml/min; Estimated Glomerular Filt Rate > 60; Glucose 107 mg/dL (65-110); Magnesium 2.2 mg/dL (1.6-2.3); Potassium 3.7 mmol/L (3.4-5.0); Sodium 140 mmol/L (137-145)
--- NOTE | 2022-04-01 08:31 | PM.IMPN ---
Progress Note: A&P Assessment and Plan (1) Non-ST elevation myocardial infarction (NSTEMI): Code(s): I21.4 - Non-ST elevation (NSTEMI) myocardial infarction Status: Acute Assessment and Plan: Appreciate cardiology consultation, continue aspirin and Plavix for 1 year, then aspirin monotherapy, continue high-intensity statin Status post heart catheterization March 31 with PCI of a MARJORIE x1 (2) Gastroesophageal reflux disease: Code(s): K21.9 - Gastro-esophageal reflux disease without esophagitis Status: Acute Assessment and Plan: Continue PPI (3) Hyperlipidemia: Code(s): E78.5 - Hyperlipidemia, unspecified Status: Acute Assessment and Plan: Continue Lipitor (4) Hypertension: Code(s): I10 - Essential (primary) hypertension Status: Acute Assessment and Plan: Controlled on losartan, metoprolol Plan DVT prophylaxis with Lovenox GI prophylaxis with PPI Code status full code Subjective Date/time seen: 04/01/22 08:31 Interval history: No overnight events noted. No chest pain or shortness of breath. No nausea, vomiting or diarrhea. No fevers or chills. Review of Systems Review of Systems: 12 point review of systems was assessed and was negative except as noted in the HPI Exam Narrative: General: No acute distress, alert and oriented per baseline HEENT: Atraumatic, normocephalic, mucous membranes moist CV: Regular rate and rhythm, S1, S2 Lungs: Clear to auscultation bilaterally, no rales or crackles noted, no wheezes, good air entry Abdomen: Soft, nontender, nondistended Extremities: Normal to inspection Skin: No rashes noted, no lesions or wounds seen Psych: Euthymic, normal affect Objective Data Vital Signs Vital Signs: Vital Signs - 24 hr 03/31/22 10:00 03/31/22 13:04 03/31/22 13:00 Temperature Pulse Rate 60 57 L 54 L Respiratory Rate 16 16 Blood Pressure 141/69 H 129/67 Pulse Oximetry 93 93 Oxygen Delivery Room Air Room Air 03/31/22 13:15 03/31/22 14:00 03/31/22 13:30 Temperature Pulse Rate 51 L 55 L 55 L Respiratory Rate 8 L 15 10 L Blood Pressure 136/65 135/69 127/71 Pulse Oximetry 94 92 94 Oxygen Delivery Room Air Room Air Room Air 03/31/22 13:45 03/31/22 14:15 03/31/22 14:32 Temperature Pulse Rate 50 L 57 L 56 L Respiratory Rate 12 16 11 L Blood Pressure 130/65 135/69 134/69 Pulse Oximetry 94 94 94 Oxygen Delivery Room Air Room Air Room Air 03/31/22 15:00 03/31/22 14:45 03/31/22 15:16 Temperature Pulse Rate 56 L 59 L 57 L Respiratory Rate 13 15 10 L Blood Pressure 129/66 134/72 131/75 Pulse Oximetry 94 94 95 Oxygen Delivery Room Air Room Air Room Air 03/31/22 15:30 03/31/22 15:45 03/31/22 15:59 Temperature Pulse Rate 57 L 56 L 55 L Respiratory Rate 11 L 11 L 13 Blood Pressure 133/78 120/74 139/75 Pulse Oximetry 95 95 95 Oxygen Delivery Room Air Room Air Room Air 03/31/22 16:00 03/31/22 16:45 03/31/22 16:00 Temperature 97.4 F L 97.6 F Pulse Rate 58 L 59 L Respiratory Rate 16 16 Blood Pressure 127/71 139/65 Pulse Oximetry 98 97 Oxygen Delivery Room Air 03/31/22 16:00 03/31/22 18:00 03/31/22 20:00 Temperature Pulse Rate 55 L 63 63 Respiratory Rate 16 Blood Pressure Pulse Oximetry 97 Oxygen Delivery Room Air 03/31/22 20:00 03/31/22 20:00 03/31/22 22:00 Temperature 97.6 F Pulse Rate 67 69 62 Respiratory Rate 18 Blood Pressure 113/55 L Pulse Oximetry 98 Oxygen Delivery 03/31/22 23:17 04/01/22 00:00 04/01/22 00:00 Temperature 97.8 F Pulse Rate 65 64 64 Respiratory Rate 18 18 Blood Pressure 129/64 Pulse Oximetry 95 95 Oxygen Delivery Room Air 04/01/22 02:00 04/01/22 04:00 04/01/22 04:00 Temperature Pulse Rate 60 60 57 L Respiratory Rate 18 Blood Pressure Pulse Oximetry 95 Oxygen Delivery Room Air 04/01/22 04:00 04/01/22 06:00 Temperature 97.6 F Pulse Rate 54 L 59 L Respi
--- NOTE | 2022-04-01 08:39 | PM.DS ---
DS: Admitting Diagnosis Discharge Date 04/01/22 Admitting Diagnosis Chest pain DS: Discharge Diagnosis Discharge Diagnosis (1) Non-ST elevation myocardial infarction (NSTEMI): Code(s): I21.4 - Non-ST elevation (NSTEMI) myocardial infarction Status: Acute Assessment and Plan: Appreciate cardiology consultation, continue aspirin and Plavix for 1 year, then aspirin monotherapy, continue high-intensity statin Status post heart catheterization March 31 with PCI of a MARJORIE x1 (2) Gastroesophageal reflux disease: Code(s): K21.9 - Gastro-esophageal reflux disease without esophagitis Status: Acute Assessment and Plan: Continue PPI (3) Hyperlipidemia: Code(s): E78.5 - Hyperlipidemia, unspecified Status: Acute Assessment and Plan: Continue Lipitor (4) Hypertension: Code(s): I10 - Essential (primary) hypertension Status: Acute Assessment and Plan: Controlled on losartan, metoprolol Plan DVT prophylaxis with Lovenox GI prophylaxis with PPI Code status full code DS: Summary Hospital Course Hospital Course: 71-year-old male with past medical history significant for hypertension, hyperlipidemia GERD presented for evaluation of chest pain. His troponins did elevate and peaked at 4.7. He was given a loading dose of Plavix and started on aspirin, metoprolol, losartan and high-intensity statin. EKG was abnormal but there was no ST elevation noted. Cardiology recommended heart catheterization which was performed on March 31, 2022. Midportion of the diagonal 1 vessel had a focal 80-90% stenosis and so PCI with MARJORIE x1 was performed. There was mild diffuse disease without significant obstructive angiographic disease noted in the left anterior descending, left circumflex and right coronary artery. Echo was performed and showed an EF of greater than 70% without significant valvular disease or diastolic dysfunction noted. Patient tolerated procedure well and was discharged in good condition with close outpatient follow-up by Cardiology and referred to cardiac rehab. Please see above for details and look at med rec for medications at discharge. Time Spent with Patient Time attestation: Total time spent providing and/or coordinating discharge services: Exam Narrative: General: No acute distress, alert and oriented per baseline HEENT: Atraumatic, normocephalic, mucous membranes moist CV: Regular rate and rhythm, S1, S2 Lungs: Clear to auscultation bilaterally, no rales or crackles noted, no wheezes, good air entry Abdomen: Soft, nontender, nondistended Extremities: Normal to inspection Skin: No rashes noted, no lesions or wounds seen Psych: Euthymic, normal affect DS: Data Data Completed and Pending Labs on day of discharge: Labs from last 24 hours 04/01/22 04/01/22 03/31/22 04:31 04:31 12:06 WBC 9.0 RBC 4.28 L Hgb 13.4 L Hct 39.2 L MCV 91.6 MCH 31.3 MCHC 34.2 RDW 12.4 Plt Count 214 MPV 9.6 Immature Gran % (Auto) 0.2 Neut % (Auto) 59.4 Lymph % (Auto) 29.0 [place] % (Auto) 7.9 Eos % (Auto) 2.8 Baso % (Auto) 0.7 Lymph # (Auto) 2.62 [place] # (Auto) 0.7 H Eos # (Auto) 0.3 Baso # (Auto) 0.1 Abs Immat Gran (auto) 0.02 Absolute Neuts (auto) 5.4 Absolute Nucleated RBC 0.0 Nucleated RBC % 0.0 Activ Coag Time [place] 324 H Sodium 140 Potassium 3.7 Chloride 104 Carbon Dioxide 27 Anion Gap 9 BUN 8 L Creatinine 0.60 L Estim Creat Clear Calc 98 Estimated GFR > 60 Glucose 107 POC Capillary Glucose Calcium 7.9 L Magnesium 2.2 Total Bilirubin 0.5 AST 37 ALT 17 Alkaline Phosphatase 40 Total Protein 6.0 L Albumin 3.6 03/31/22 03/31/22 11:53 08:36 WBC RBC Hgb Hct MCV MCH MCHC RDW Plt Count MPV Immature Gran % (Auto) Neut % (Auto) Lymph % (Auto) [place] % (Auto) Eos % (Auto)
--- NOTE | 2022-04-01 11:54 | PM.PNCARD ---
Progress Note: A&P Assessment and Plan (1) Non-ST elevation myocardial infarction (NSTEMI): Code(s): I21.4 - Non-ST elevation (NSTEMI) myocardial infarction Status: Acute (2) Gastroesophageal reflux disease: Code(s): K21.9 - Gastro-esophageal reflux disease without esophagitis Status: Acute (3) Hyperlipidemia: Code(s): E78.5 - Hyperlipidemia, unspecified Status: Acute (4) Hypertension: Code(s): I10 - Essential (primary) hypertension Status: Acute Plan S/p PCI to Diagonal with MARJORIE x 1. Stable from a cardiac standpoint with no further cardiac symptoms. Echo is normal. Okay for patient to be discharged. Discharge patient on: ASA 81mg QD, Plavix 75mg QD, Atorvastatin 80mg QD, Toprol 50mg QD, Losartan 25mg QD Patient to be on ASA indefinitely, Plavix for at least 1 year. Patient will find a hydration plant operator back in his [place] town, states they have already been in communication with their PCP. Subjective Date/time seen: 04/01/22 11:55 Interval history: Patient doing well. No chest pain overnight. No cardiac symptoms. Review of Systems Review of Systems: All systems reviewed & are unremarkable except as noted in HPI and below (subjective) Exam Const: General: comfortable and no acute distress HENMT: Mouth: Yes moist mucous membranes Eyes: General: appearance normal, both eyes and all related structures Neck: Neck: no JVD Resp: Effort & Inspection: normal respiratory effort Auscultation: clear to auscultation bilaterally Cardio: Rate: regular rate Rhythm: regular rhythm Heart sounds: no murmurs GI: GI Palp: Yes Soft to palpation and No Tenderness to palpation present (GI) Skin: General skin exam: normal color Neuro: Speech: normal speech Extrem: General: no edema Psych: Mental Status: mental status grossly normal Objective Data Vital Signs Vital Signs: Vital Signs - 24 hr 03/31/22 13:04 03/31/22 13:00 03/31/22 13:15 Temperature Pulse Rate 57 L 54 L 51 L Respiratory Rate 16 16 8 L Blood Pressure 141/69 H 129/67 136/65 Pulse Oximetry 93 93 94 Oxygen Delivery Room Air Room Air Room Air 03/31/22 14:00 03/31/22 13:30 03/31/22 13:45 Temperature Pulse Rate 55 L 55 L 50 L Respiratory Rate 15 10 L 12 Blood Pressure 135/69 127/71 130/65 Pulse Oximetry 92 94 94 Oxygen Delivery Room Air Room Air Room Air 03/31/22 14:15 03/31/22 14:32 03/31/22 15:00 Temperature Pulse Rate 57 L 56 L 56 L Respiratory Rate 16 11 L 13 Blood Pressure 135/69 134/69 129/66 Pulse Oximetry 94 94 94 Oxygen Delivery Room Air Room Air Room Air 03/31/22 14:45 03/31/22 15:16 03/31/22 15:30 Temperature Pulse Rate 59 L 57 L 57 L Respiratory Rate 15 10 L 11 L Blood Pressure 134/72 131/75 133/78 Pulse Oximetry 94 95 95 Oxygen Delivery Room Air Room Air Room Air 03/31/22 15:45 03/31/22 15:59 03/31/22 16:00 Temperature 36.3 C L Pulse Rate 56 L 55 L 58 L Respiratory Rate 11 L 13 16 Blood Pressure 120/74 139/75 127/71 Pulse Oximetry 95 95 98 Oxygen Delivery Room Air Room Air 03/31/22 16:45 03/31/22 16:00 03/31/22 16:00 Temperature 36.4 C Pulse Rate 59 L 55 L Respiratory Rate 16 Blood Pressure 139/65 Pulse Oximetry 97 Oxygen Delivery Room Air 03/31/22 18:00 03/31/22 20:00 03/31/22 20:00 Temperature 36.4 C Pulse Rate 63 63 67 Respiratory Rate 16 18 Blood Pressure 113/55 L Pulse Oximetry 97 98 Oxygen Delivery Room Air 03/31/22 20:00 03/31/22 22:00 03/31/22 23:17 Temperature 36.6 C Pulse Rate 69 62 65 Respiratory Rate 18 Blood Pressure 129/64 Pulse Oximetry 95 Oxygen Delivery 04/01/22 00:00 04/01/22 00:00 04/01/22 02:00 Temperature Pulse Rate 64 64 60 Respiratory Rate 18 Blood Pressure Pulse Oximetry 95 Oxygen Delivery Room Air 04/01/22 04:00 04/01/22 04:00 04/01/22 04:00 Temperature 36.4 C Pulse Rate 60 57 L 54 L Respiratory Rate 18 18 Blood Pressure 128/62
[2022-04-01] MEDS: METOPROLOL SUCCINATE EXT REL 50 MG TABCR PO (11:59)
[2022-04-01] MEDS: ASPIRIN 81 MG ENTERIC TABLET PO (11:59)
[2022-04-01] MEDS: CLOPIDOGREL BISULFATE 75 MG TABLET PO (11:59)
[2022-04-01] MEDS: LOSARTAN POTASSIUM 25 MG TABLET PO (11:59)
[2022-04-01] MEDS: ATORVASTATIN 40 MG TABLET 80 MG PO (12:00)
== END 2022-04-01 14:53 | disposition home or self-care (01) | DRG 247 ==
LOC: ANHED 08:39 → ANHIMU 10:24
PROVIDERS: Internal Medicine; Admitting Provider Chiropractor; Emergency Provider Emergency Medicine; Visit Provider Student in an Organized Health Care Education/Training Program
PROC: 4A023N8 Measurement of Cardiac Sampling and Pressure, Bilateral, Percutaneous Approach (ICD-10-PCS; CPT 93454; principal; 2022-03-31 11:30)
PROC: 4A023N8 Measurement of Cardiac Sampling and Pressure, Bilateral, Percutaneous Approach (ICD-10-PCS; 2022-03-31 11:30)
DX: I21.4 Non-ST elevation (NSTEMI) myocardial infarction (principal); I10 Essential (primary) hypertension; I25.10 Atherosclerotic heart disease of native coronary artery without angina pectoris; E78.5 Hyperlipidemia, unspecified; K21.9 Gastro-esophageal reflux disease without esophagitis; Z87.891 Personal history of nicotine dependence
CPT/HCPCS: 36415; 71046; 80053; 82948; 83690; 83735; 84484; 85025; 85610; 85730; 93005; 93454; 96372; 99285; A9270; C1725; C1769; C1874; C1887; C1894; C8929; C9600; G0378; J1170; J1644; J1650; J2250; J3010; J7030; J7040; Q9957